=== PATIENT | male | born 1965 | race Caucasian/White ===

== ENCOUNTER 2021-12-27 12:17 | Inpatient (IN) ==
[2021-12-27] MEDS ORDERED: cefTRIAXone 1,000 MG in 0.9 % Sodium Chloride 10 ML IVP ONE (12:49)
[2021-12-27] MEDS ORDERED: Pantoprazole 40 MG VIAL IVP ONE (12:49)
[2021-12-27 13:23] LABS: Basophils % 1.5 %; Eosinophils # 0.1 K/mcL (0.0-0.6); Eosinophils % 5.5 %; Hematocrit 33.3 % (37.5-50.1); Hemoglobin 11.2 g/dL (12.9-16.9); Immature Granulocytes % 0.5 % (0-4); Lymphocytes # 0.3 K/mcL (0.6-4.6); Mean Corpuscular HGB Conc 33.6 g/dL (31.6-35.5); Mean Corpuscular Hemoglobin 29.8 pg (28.0-33.3); Mean Corpuscular Volume 88.6 fL (83.0-100.0); Mean Platelet Volume 11.9 fL (9.4-12.4); Monocytes # 0.2 K/mcL (0.0-1.3); Neutrophils # 1.4 K/mcL (1.6-8.9); Red Blood Count 3.76 M/mcL (4.19-5.50); Red Cell Distribution Width 16.1 % (11.5-14.5); Segmented Neutrophils % 67.5 %
[2021-12-27 13:27] LABS: INR 1.5; Prothrombin Time 17.2 Seconds (9.4-12.1)
[2021-12-27 13:29] LABS: Platelet Count 31 K/mcL (140-400)
[2021-12-27 13:30] LABS: Activated Partial Thrombo Time 38.2 Seconds (26.0-36.0)
[2021-12-27] MEDS ORDERED: Ondansetron 4 MG/2 ML VIAL IVP ONE (13:35)
[2021-12-27] MEDS ORDERED: Isovue-370 500 ML BOTTLE IVP ONE (13:35)
[2021-12-27] MEDS ORDERED: *HR* HYDROmorphone (PF) 1 MG/ML SYRINGE IVP STA (13:35)
[2021-12-27 13:54] LABS: Alanine Aminotransferase 16 Units/L (7-52); Albumin 3.7 g/dL (3.5-5.7); Alkaline Phosphatase 53 Units/L (34-104); Aspartate Amino Transferase 22 Units/L (13-39); BUN/Creatinine Ratio 9 (6-26); Bilirubin,Total 1.9 mg/dL (0.3-1.0); Blood Urea Nitrogen 8 mg/dL (6-20); Calcium 9.4 mg/dL (8.6-10.3); Carbon Dioxide 25 mEq/L (23-29); Chloride 101 mEq/L (98-107); Globulin 3.7 g/dL (2.4-3.5); Glucose 317 mg/dL (70-105); Lipase 28 Units/L (11-82); Osmolality,Calculated 284 (280-300); Potassium 4.4 mEq/L (3.5-5.1); Sodium 132 mEq/L (136-145); Total Protein 7.4 g/dL (6.4-8.9); eGFR For African Americans > 60 (> 60); eGFR For Non-African Americans > 60 (> 60)
[2021-12-27] MEDS: Octreotide 400 MCG in 0.9 % Sodium Chloride 100 ML IVC SCH (14:01)
[2021-12-27] MEDS ORDERED: Mag Hydrox/Al Hydrox/Simeth 30 ML UDC PO PRN (15:44)
[2021-12-27] MEDS ORDERED: Naloxone 0.4 MG/ML INJ IVP PRN (15:44)
[2021-12-27] MEDS ORDERED: Ondansetron ODT 4 MG TAB.RAPDIS SL PRN (15:44)
[2021-12-27] MEDS ORDERED: Melatonin 3 MG TABLET PO PRN (15:44)
[2021-12-27] MEDS ORDERED: *HR* LORazepam 0.5 MG TABLET PO PRN (16:42)
[2021-12-27] MEDS ORDERED: *HR* Dextrose 50 % in Water (Syg) 50 ML SYRINGE IVP PRN (17:09)
[2021-12-27] MEDS ORDERED: Dextrose Gel 15 GM/37.5 ML TUBE PO PRN ×2 (17:09)
[2021-12-27] MEDS ORDERED: D5% in Water 1,000 ML IVC PRN (17:09)
[2021-12-27] MEDS: Pantoprazole 40 MG VIAL IVP SCH (17:23)
[2021-12-27] MEDS: Lactulose Oral Soln 20 GM/30 ML UDC PO SCH (19:51)
[2021-12-27] MEDS: Nicotine 21 MG PATCH.TD24 TD SCH (20:13)
[2021-12-27] MEDS: Insulin LISPRO 300 UNITS/3 ML VIAL SUBQ SCH (20:13)
[2021-12-27] MEDS: traZODone 50 MG TABLET PO SCH (21:44)
[2021-12-27 22:00] LABS: Hematocrit 34.2 % (37.5-50.1)
[2021-12-28] MEDS: Pantoprazole 40 MG VIAL IVP SCH ×2 (05:00→18:19)
[2021-12-28] MEDS: Octreotide 400 MCG in 0.9 % Sodium Chloride 100 ML IVC SCH ×2 (05:00→21:05)
[2021-12-28 05:32] LABS: Immature Platelets 5.8 % (1.1-6.1)
[2021-12-28 05:40] LABS: Hematocrit 32.5 % (37.5-50.1); Hemoglobin 10.4 g/dL (12.9-16.9); Mean Corpuscular Hemoglobin 28.7 pg (28.0-33.3); Mean Corpuscular Volume 89.8 fL (83.0-100.0); Mean Platelet Volume 11.2 fL (9.4-12.4); Red Blood Count 3.62 M/mcL (4.19-5.50); Red Cell Distribution Width 16.2 % (11.5-14.5); White Blood Count 1.6 K/mcL (4.3-11.1)
[2021-12-28 05:48] LABS: BUN/Creatinine Ratio 9 (6-26); Blood Urea Nitrogen 8 mg/dL (6-20); Calcium 8.6 mg/dL (8.6-10.3); Carbon Dioxide 29 mEq/L (23-29); Chloride 100 mEq/L (98-107); Glucose 286 mg/dL (70-105); Osmolality,Calculated 283 (280-300); Potassium 4.5 mEq/L (3.5-5.1); Sodium 132 mEq/L (136-145); eGFR For African Americans > 60 (> 60); eGFR For Non-African Americans > 60 (> 60)
[2021-12-28 07:22] LABS: INR 1.7; Prothrombin Time 18.5 Seconds (9.4-12.1)
[2021-12-28] MEDS: Insulin LISPRO 300 UNITS/3 ML VIAL SUBQ SCH ×4 (08:01→21:07)
[2021-12-28] MEDS ORDERED: cefTRIAXone 1,000 MG in Water for inj. (sterile) 10 ML IVP SCH (09:00)
[2021-12-28] MEDS ORDERED: Nicotine 21 MG PATCH.TD24 TD SCH (09:00)
[2021-12-28] MEDS: Lactulose Oral Soln 20 GM/30 ML UDC PO SCH ×2 (09:05→21:02)
[2021-12-28] MEDS: Cyanocobalamin (B-12) 1,000 MCG TABLET PO SCH (09:21)
[2021-12-28] MEDS: lisinopriL 10 MG TABLET PO SCH (09:22)
[2021-12-28] MEDS ORDERED: Lidocaine -MPF 2% 5 ML VIAL ONE (12:23)
[2021-12-28] MEDS ORDERED: Lidocaine -MPF 4% 5 ML AMPUL ONE (12:30)
[2021-12-28] MEDS ORDERED: Ondansetron 4 MG/2 ML VIAL ONE ×2 (12:30→13:01)
[2021-12-28] MEDS ORDERED: *HR* Succinylcholine 200 MG/10 ML VIAL IVP ONE (12:30)
[2021-12-28] MEDS ORDERED: *HR* HYDROmorphone PF 0.5 MG/0.5 ML SYRINGE IVP PRN (12:37)
[2021-12-28] MEDS ORDERED: Promethazine 6.25 MG in Water for inj. (sterile) 20 ML IVPB PRN (12:37)
[2021-12-28] MEDS ORDERED: *HR* OxyCODONE Immed Rel 5 MG TABLET PO PRN (12:37)
[2021-12-28] MEDS ORDERED: Ondansetron 4 MG/2 ML VIAL IVP PRN (12:37)
[2021-12-28] MEDS ORDERED: *HR* Midazolam HCl 2 MG/2 ML VIAL ONE (12:42)
[2021-12-28] MEDS ORDERED: EPHEDrine 50 MG/ML VIAL ONE (12:58)
[2021-12-28] MEDS ORDERED: *HR* Rocuronium Bromide 50 MG/5 ML VIAL ONE (13:00)
[2021-12-28] MEDS: cefTRIAXone 1,000 MG in 0.9 % Sodium Chloride 10 ML IVP SCH (19:41)
[2021-12-28] MEDS: Nicotine 21 MG PATCH.TD24 TD SCH (21:04)
[2021-12-28] MEDS: traZODone 50 MG TABLET PO SCH (22:11)
[2021-12-29] MEDS: traZODone 50 MG TABLET PO SCH ×2 (00:06→21:29)
[2021-12-29] MEDS: Pantoprazole 40 MG VIAL IVP SCH ×2 (04:26→17:24)
[2021-12-29] MEDS: lisinopriL 10 MG TABLET PO SCH (08:06)
[2021-12-29 09:05] LABS: Hemoglobin 10.3 g/dL (12.9-16.9); Lymphocytes # 0.2 K/mcL (0.6-4.6); Mean Corpuscular HGB Conc 31.2 g/dL (31.6-35.5); Mean Corpuscular Hemoglobin 28.7 pg (28.0-33.3); Mean Corpuscular Volume 91.9 fL (83.0-100.0); Mean Platelet Volume 10.8 fL (9.4-12.4); Red Blood Count 3.59 M/mcL (4.19-5.50); Red Cell Distribution Width 15.9 % (11.5-14.5)
[2021-12-29 09:06] LABS: White Blood Count 2.6 K/mcL (4.3-11.1)
[2021-12-29 09:08] LABS: Platelet Count 27 K/mcL (140-400)
[2021-12-29 09:27] LABS: Alanine Aminotransferase 15 Units/L (7-52); Albumin 3.4 g/dL (3.5-5.7); Albumin/Globulin Ratio 1.1 (1.1-2.2); Alkaline Phosphatase 46 Units/L (34-104); Aspartate Amino Transferase 22 Units/L (13-39); BUN/Creatinine Ratio 17 (6-26); Bilirubin,Total 1.6 mg/dL (0.3-1.0); Blood Urea Nitrogen 25 mg/dL (6-20); Carbon Dioxide 27 mEq/L (23-29); Chloride 100 mEq/L (98-107); Globulin 3.2 g/dL (2.4-3.5); Glucose 300 mg/dL (70-105); Osmolality,Calculated 288 (280-300); Potassium 4.7 mEq/L (3.5-5.1); Sodium 131 mEq/L (136-145); Total Protein 6.6 g/dL (6.4-8.9); eGFR For African Americans > 60 (> 60); eGFR For Non-African Americans 50 (> 60)
[2021-12-29 09:29] LABS: Monocytes # 0.2 K/mcL (0.0-1.3); Neutrophils # 2.2 K/mcL (1.6-8.9); Platelet Estimate Decreased (Normal)
[2021-12-29] MEDS: Lactulose Oral Soln 20 GM/30 ML UDC PO SCH ×2 (09:56→20:03)
[2021-12-29] MEDS: Cyanocobalamin (B-12) 1,000 MCG TABLET PO SCH (09:57)
[2021-12-29] MEDS: cefTRIAXone 1,000 MG in 0.9 % Sodium Chloride 10 ML IVP SCH (09:57)
[2021-12-29] MEDS: Insulin LISPRO 300 UNITS/3 ML VIAL SUBQ SCH ×4 (10:02→20:07)
[2021-12-29] MEDS: Octreotide 400 MCG in 0.9 % Sodium Chloride 100 ML IVC SCH (10:14)
[2021-12-29] MEDS ORDERED: 0.9 % Sodium Chloride 1,000 ML IVC SCH (10:30)
[2021-12-29] MEDS ORDERED: Albumin 25% 25gram/100mL 25 GM/100 ML IV.SOLN IVPB ONE (15:21)
[2021-12-29] MEDS: Nicotine 21 MG PATCH.TD24 TD SCH (20:07)
[2021-12-30] MEDS: Octreotide 400 MCG in 0.9 % Sodium Chloride 100 ML IVC SCH (03:30)
[2021-12-30] MEDS: Pantoprazole 40 MG VIAL IVP SCH (05:14)
[2021-12-30 08:00] VITALS: BP 97/52; PULSE 58; TEMP 98; O2SAT 94
[2021-12-30] MEDS: Lactulose Oral Soln 20 GM/30 ML UDC PO SCH (08:48)
[2021-12-30] MEDS: cefTRIAXone 1,000 MG in 0.9 % Sodium Chloride 10 ML IVP SCH (08:49)
[2021-12-30] MEDS: Cyanocobalamin (B-12) 1,000 MCG TABLET PO SCH (08:49)
[2021-12-30] MEDS: Insulin LISPRO 300 UNITS/3 ML VIAL SUBQ SCH ×2 (08:51→12:05)
[2021-12-30] MEDS: lisinopriL 10 MG TABLET PO SCH (08:52)
[2021-12-30 09:06] LABS: Hematocrit 27.7 % (37.5-50.1); Hemoglobin 8.6 g/dL (12.9-16.9); Immature Platelets 6.6 % (1.1-6.1); Mean Corpuscular Hemoglobin 28.8 pg (28.0-33.3); Mean Corpuscular Volume 92.6 fL (83.0-100.0); Mean Platelet Volume 10.3 fL (9.4-12.4); Monocytes # 0.1 K/mcL (0.0-1.3); Red Blood Count 2.99 M/mcL (4.19-5.50); Red Cell Distribution Width 16.5 % (11.5-14.5); White Blood Count 1.6 K/mcL (4.3-11.1)
[2021-12-30 09:20] LABS: Platelet Count 23 K/mcL (140-400)
[2021-12-30 09:22] LABS: BUN/Creatinine Ratio 23 (6-26); Blood Urea Nitrogen 22 mg/dL (6-20); Calcium 7.7 mg/dL (8.6-10.3); Carbon Dioxide 27 mEq/L (23-29); Chloride 105 mEq/L (98-107); Glucose 240 mg/dL (70-105); Osmolality,Calculated 291 (280-300); Potassium 4.4 mEq/L (3.5-5.1); Sodium 135 mEq/L (136-145); eGFR For African Americans > 60 (> 60); eGFR For Non-African Americans > 60 (> 60)
[2021-12-30 09:35] LABS: Lymphocytes # 0.1 K/mcL (0.6-4.6); Neutrophils # 1.4 K/mcL (1.6-8.9); Platelet Estimate Decreased (Normal)
== END 2021-12-30 16:20 | disposition home or self-care (01) | DRG 280 ==
LOC: EMEROOARM 12:17 → 3NENU 12:17 → SUATTDRO 15:46 → 3NENU 18:03
PROVIDERS: ADMIT Family Medicine; ATTEND Family Medicine

== ENCOUNTER 2022-05-09 15:41 | Inpatient (IN) ==
[2022-05-09] MEDS ORDERED: Iopamidol - 370 500 ML MLS IVP ONE (15:49)
[2022-05-09] MEDS ORDERED: Pantoprazole 40 MG VIAL IVP ONE (15:49)
[2022-05-09] MEDS ORDERED: Morphine Sulfate 2 MG/ML SYRINGE IVP ONE (15:59)
[2022-05-09] MEDS ORDERED: 0.9 % Sodium Chloride 250 ML ONE (16:02)
[2022-05-09 16:25] LABS: Hematocrit 33.5 % (37.5-50.1)
[2022-05-09 16:27] LABS: Eosinophils # 0.1 K/mcL (0.0-0.6); Eosinophils % 4.5 %; Hemoglobin 11.5 g/dL (12.9-16.9); Immature Granulocytes % 0.9 % (0-4); Lymphocytes # 0.4 K/mcL (0.6-4.6); Lymphocytes % 32.7 %; Mean Corpuscular HGB Conc 34.3 g/dL (31.6-35.5); Mean Corpuscular Hemoglobin 33.5 pg (28.0-33.3); Mean Corpuscular Volume 97.7 fL (83.0-100.0); Mean Platelet Volume 12.5 fL (9.4-12.4); Monocytes # 0.1 K/mcL (0.0-1.3); Monocytes % 12.7 %; Neutrophils # 0.5 K/mcL (1.6-8.9); Red Blood Count 3.43 M/mcL (4.19-5.50); Red Cell Distribution Width 14.7 % (11.5-14.5); Segmented Neutrophils % 49.2 %; White Blood Count 1.1 K/mcL (4.3-11.1)
[2022-05-09 16:32] LABS: INR 1.3; Prothrombin Time 14.8 Seconds (9.4-12.1)
[2022-05-09 16:33] LABS: Platelet Count 20 K/mcL (140-400)
[2022-05-09 16:34] LABS: Activated Partial Thrombo Time 37.9 Seconds (26.0-36.0)
[2022-05-09 16:42] LABS: Alanine Aminotransferase 25 Units/L (7-52); Albumin 3.6 g/dL (3.5-5.7); Albumin/Globulin Ratio 1.2 (1.1-2.2); Alkaline Phosphatase 37 Units/L (34-104); Aspartate Amino Transferase 38 Units/L (13-39); BUN/Creatinine Ratio 15 (6-26); Blood Urea Nitrogen 16 mg/dL (6-20); Carbon Dioxide 24 mEq/L (23-29); Chloride 105 mEq/L (98-107); Globulin 2.9 g/dL (2.4-3.5); Glucose 113 mg/dL (70-105); Osmolality,Calculated 280 (280-300); Potassium 4.2 mEq/L (3.5-5.1); Sodium 134 mEq/L (136-145); Total Protein 6.5 g/dL (6.4-8.9); Troponin I < 0.03 ng/mL (< 0.04); eGFR For African Americans > 60 (> 60); eGFR For Non-African Americans > 60 (> 60)
[2022-05-09 17:10] LABS: Platelet Estimate Marked Decrease (Normal)
[2022-05-09] MEDS ORDERED: cefTRIAXone 1,000 MG in 0.9 % Sodium Chloride 10 ML IVP ONE (18:42)
[2022-05-09] MEDS ORDERED: Octreotide 50 MCG/ML INJ IVP ONE (18:42)
[2022-05-09] MEDS: Octreotide 400 MCG in 0.9 % Sodium Chloride 100 ML IVC SCH (19:18)
[2022-05-09] MEDS ORDERED: Naloxone 0.4 MG/ML INJ IVP PRN (19:43)
[2022-05-09] MEDS ORDERED: 0.9 % Sodium Chloride 1,000 ML IVC SCH (20:30)
[2022-05-09 20:49] LABS: Hepatitis B Surface Antigen Nonreactive (Nonreactive)
[2022-05-09 21:19] LABS: Hepatitis B Core IgM Nonreactive (Nonreactive)
[2022-05-09 22:23] LABS: Magnesium 1.7 mg/dL (1.6-2.6); Phosphorous 3.8 mg/dL (2.7-4.5)
[2022-05-09 22:28] LABS: Alanine Aminotransferase 24 Units/L (7-52); Albumin 3.5 g/dL (3.5-5.7); Albumin/Globulin Ratio 1.1 (1.1-2.2); Alkaline Phosphatase 37 Units/L (34-104); Aspartate Amino Transferase 42 Units/L (13-39); Bilirubin,Direct 0.4 mg/dL (0.0-0.2); Bilirubin,Indirect 1.6 mg/dL (0.0-1.0); Ethanol < 10 mg/dL (Less than 10); Globulin 3.3 g/dL (2.4-3.5); Total Protein 6.8 g/dL (6.4-8.9)
[2022-05-09 22:39] LABS: Hepatitis A Antibody IgM Nonreactive (Nonreactive)
[2022-05-09] MEDS ORDERED: *HR* Dextrose 50 % in Water (Syg) 50 ML SYRINGE IVP PRN (22:41)
[2022-05-09] MEDS ORDERED: Dextrose Gel 15 GM/37.5 ML TUBE PO PRN ×2 (22:41)
[2022-05-09] MEDS ORDERED: D5% in Water 1,000 ML IVC PRN (22:41)
[2022-05-09 23:07] LABS: Hepatitis C Virus Antibody Reactive (Nonreactive)
[2022-05-09] MEDS: traZODone 50 MG TABLET PO SCH (23:39)
[2022-05-09] MEDS: *HR* LORazepam 0.5 MG TABLET PO PRN (23:39)
[2022-05-09] MEDS ORDERED: 0.9 % Sodium Chloride 1,000 ML IVC ONE (23:52)
[2022-05-09] MEDS ORDERED: Acetaminophen IV 500 MG/50 ML BAG IVPB PRN (23:55)
[2022-05-10] MEDS: Insulin LISPRO 300 UNITS/3 ML VIAL SUBQ SCH ×6 (00:20→20:27)
[2022-05-10] MEDS: Nicotine 21 MG PATCH.TD24 TD SCH ×2 (00:25→08:38)
[2022-05-10] MEDS ORDERED: 0.9 % Sodium Chloride 1,000 ML IVC SCH (01:15)
[2022-05-10 01:22] LABS: Hematocrit 31.2 % (37.5-50.1); Hemoglobin 10.7 g/dL (12.9-16.9); Mean Corpuscular HGB Conc 34.3 g/dL (31.6-35.5); Mean Corpuscular Hemoglobin 33.2 pg (28.0-33.3); Mean Corpuscular Volume 96.9 fL (83.0-100.0); Red Blood Count 3.22 M/mcL (4.19-5.50); Red Cell Distribution Width 14.7 % (11.5-14.5)
[2022-05-10 01:28] LABS: Platelet Count 21 K/mcL (140-400); White Blood Count 0.7 K/mcL (4.3-11.1)
[2022-05-10 01:44] LABS: BUN/Creatinine Ratio 15 (6-26); Blood Urea Nitrogen 15 mg/dL (6-20); Calcium 7.7 mg/dL (8.6-10.3); Carbon Dioxide 20 mEq/L (23-29); Chloride 110 mEq/L (98-107); Glucose 85 mg/dL (70-105); Osmolality,Calculated 284 (280-300); Potassium 4.2 mEq/L (3.5-5.1); Sodium 137 mEq/L (136-145); eGFR For African Americans > 60 (> 60); eGFR For Non-African Americans > 60 (> 60)
[2022-05-10] MEDS ORDERED: 0.9 % Sodium Chloride 250 ML ONE (02:08)
[2022-05-10] MEDS: 0.9 % Sodium Chloride 1,000 ML IVC SCH ×4 (02:28→20:27)
[2022-05-10] MEDS: Pantoprazole 40 MG VIAL IVP SCH ×2 (06:44→17:58)
[2022-05-10] MEDS: cefTRIAXone 1,000 MG in 0.9 % Sodium Chloride 10 ML IVP SCH (08:37)
[2022-05-10] MEDS ORDERED: *HR* Propofol 200 MG/20 ML VIAL IVP ONE (09:37)
[2022-05-10] MEDS ORDERED: *HR* FentaNYL (PF) 100 MCG/2 ML VIAL ONE (09:38)
[2022-05-10] MEDS ORDERED: Ondansetron 4 MG/2 ML VIAL IVP ONE (10:28)
[2022-05-10] MEDS ORDERED: Ondansetron 4 MG/2 ML VIAL ONE (10:30)
[2022-05-10 11:43] LABS: Hematocrit 32.2 % (37.5-50.1)
[2022-05-10 11:45] LABS: Hemoglobin 10.9 g/dL (12.9-16.9); Immature Platelets 5.1 % (1.1-6.1); Lymphocytes # 0.2 K/mcL (0.6-4.6); Mean Corpuscular HGB Conc 33.9 g/dL (31.6-35.5); Mean Corpuscular Hemoglobin 33.9 pg (28.0-33.3); Mean Platelet Volume 9.1 fL (9.4-12.4); Monocytes # 0.1 K/mcL (0.0-1.3); Neutrophils # 0.3 K/mcL (1.6-8.9); Red Blood Count 3.22 M/mcL (4.19-5.50); Red Cell Distribution Width 14.8 % (11.5-14.5)
[2022-05-10 11:51] LABS: Platelet Count 15 K/mcL (140-400); White Blood Count 0.6 K/mcL (4.3-11.1)
[2022-05-10 13:48] LABS: Platelet Estimate Marked Decrease (Normal)
[2022-05-10] MEDS: Octreotide 400 MCG in 0.9 % Sodium Chloride 100 ML IVC SCH (14:24)
[2022-05-10] MEDS: traZODone 50 MG TABLET PO SCH (21:18)
[2022-05-10] MEDS: *HR* LORazepam 0.5 MG TABLET PO PRN (23:59)
[2022-05-11] MEDS: Octreotide 400 MCG in 0.9 % Sodium Chloride 100 ML IVC SCH ×3 (04:38→21:23)
[2022-05-11 05:19] LABS: Hematocrit 26.3 % (37.5-50.1); Mean Corpuscular HGB Conc 34.6 g/dL (31.6-35.5); Mean Corpuscular Hemoglobin 33.6 pg (28.0-33.3); Mean Platelet Volume 10.7 fL (9.4-12.4); Red Blood Count 2.71 M/mcL (4.19-5.50); Red Cell Distribution Width 14.5 % (11.5-14.5)
[2022-05-11 05:24] LABS: Hemoglobin 9.1 g/dL (12.9-16.9)
[2022-05-11 05:28] LABS: Platelet Count 15 K/mcL (140-400); White Blood Count 0.7 K/mcL (4.3-11.1)
[2022-05-11 05:30] LABS: BUN/Creatinine Ratio 15 (6-26); Blood Urea Nitrogen 12 mg/dL (6-20); Calcium 7.1 mg/dL (8.6-10.3); Carbon Dioxide 24 mEq/L (23-29); Chloride 109 mEq/L (98-107); Glucose 174 mg/dL (70-105); Osmolality,Calculated 286 (280-300); Potassium 4.3 mEq/L (3.5-5.1); Sodium 136 mEq/L (136-145); eGFR For African Americans > 60 (> 60); eGFR For Non-African Americans > 60 (> 60)
[2022-05-11] MEDS: Pantoprazole 40 MG VIAL IVP SCH ×2 (06:10→18:20)
[2022-05-11 06:25] LABS: Lymphocytes # 0.2 K/mcL (0.6-4.6); Neutrophils # 0.4 K/mcL (1.6-8.9); Platelet Estimate Marked Decrease (Normal)
[2022-05-11] MEDS: Insulin LISPRO 300 UNITS/3 ML VIAL SUBQ SCH ×4 (09:38→21:06)
[2022-05-11] MEDS: Nicotine 21 MG PATCH.TD24 TD SCH (09:39)
[2022-05-11] MEDS: cefTRIAXone 1,000 MG in 0.9 % Sodium Chloride 10 ML IVP SCH (09:39)
[2022-05-11] MEDS: 0.9 % Sodium Chloride 1,000 ML IVC SCH ×2 (09:42→20:56)
[2022-05-11] MEDS: traZODone 50 MG TABLET PO SCH (21:07)
[2022-05-12] MEDS: *HR* LORazepam 0.5 MG TABLET PO PRN (00:18)
[2022-05-12] MEDS: Pantoprazole 40 MG VIAL IVP SCH (05:27)
[2022-05-12 05:58] LABS: Alanine Aminotransferase 21 Units/L (7-52); Albumin 3.1 g/dL (3.5-5.7); Albumin/Globulin Ratio 1.1 (1.1-2.2); Alkaline Phosphatase 45 Units/L (34-104); Aspartate Amino Transferase 32 Units/L (13-39); BUN/Creatinine Ratio 8 (6-26); Bilirubin,Total 1.9 mg/dL (0.3-1.0); Blood Urea Nitrogen 6 mg/dL (6-20); Carbon Dioxide 25 mEq/L (23-29); Chloride 108 mEq/L (98-107); Globulin 2.7 g/dL (2.4-3.5); Glucose 171 mg/dL (70-105); Osmolality,Calculated 286 (280-300); Sodium 137 mEq/L (136-145); Total Protein 5.8 g/dL (6.4-8.9); eGFR For African Americans > 60 (> 60); eGFR For Non-African Americans > 60 (> 60)
[2022-05-12 06:21] LABS: Hematocrit 28.5 % (37.5-50.1); Hemoglobin 9.6 g/dL (12.9-16.9); Lymphocytes % 30.7 %; Mean Corpuscular HGB Conc 33.7 g/dL (31.6-35.5); Mean Corpuscular Hemoglobin 33.1 pg (28.0-33.3); Mean Corpuscular Volume 98.3 fL (83.0-100.0); Mean Platelet Volume 12.4 fL (9.4-12.4); Monocytes # 0.1 K/mcL (0.0-1.3); Red Cell Distribution Width 14.3 % (11.5-14.5); Segmented Neutrophils % 57.3 %
[2022-05-12 06:22] LABS: Lymphocytes # 0.3 K/mcL (0.6-4.6); Neutrophils # 0.5 K/mcL (1.6-8.9)
[2022-05-12 06:24] LABS: Platelet Count 17 K/mcL (140-400); White Blood Count 0.8 K/mcL (4.3-11.1)
[2022-05-12] MEDS: Insulin LISPRO 300 UNITS/3 ML VIAL SUBQ SCH ×2 (07:41→12:46)
[2022-05-12] MEDS: cefTRIAXone 1,000 MG in 0.9 % Sodium Chloride 10 ML IVP SCH (08:46)
[2022-05-12] MEDS: Nicotine 21 MG PATCH.TD24 TD SCH (08:47)
[2022-05-12] MEDS: 0.9 % Sodium Chloride 1,000 ML IVC SCH (08:52)
[2022-05-12] MEDS ORDERED: hydrOXYzine pamoate 25 MG CAPSULE PO SCH (09:00)
[2022-05-12] MEDS ORDERED: Furosemide 40 MG TABLET PO SCH (09:00)
[2022-05-12] MEDS ORDERED: lisinopriL 10 MG TABLET PO SCH (09:00)
[2022-05-12 11:25] VITALS: BP 117/80; PULSE 79; TEMP 97.9; O2SAT 94
== END 2022-05-12 14:24 | disposition home or self-care (01) | DRG 280 ==
LOC: EMEROOARM 15:41 → 3NENU 15:41 → SUATTDRO 20:42 → 3NENU 21:15
PROVIDERS: ADMIT Internal Medicine; ATTEND Hospitalist